=== PATIENT | female | born 1965 | race Two or more races ===

== ENCOUNTER 2021-06-23 19:53 | Inpatient (IN) | payer MEDICARE, OTHER ==
[~2021-06-23] VITALS: Ht 165.1 cm; Wt 80.7 kg
--- NOTE | 2021-06-23 20:20 | NUR ---
Dr. Valverde at bedside for MSE.
--- NOTE | 2021-06-23 21:18 | NUR ---
Pt out of ER for CT.
--- NOTE | 2021-06-23 22:18 | NUR ---
Pt back to ER from CT.
--- NOTE | 2021-06-23 22:35 | NUR ---
Called [facility] to page Gemma Saab NP.
[2021-06-23] MEDS ORDERED: ABEM150T PO (22:46)
[2021-06-23] MEDS ORDERED: BP MEDICATION PO (22:46)
[2021-06-23] MEDS ORDERED: INSU3INS9 SQ (22:46)
--- NOTE | 2021-06-23 22:50 | NUR ---
Dr. Valverde on panel call with Gemma Saab NP. Patient accepted for admission to [facility], diagnosis: lumbar fracture.
[2021-06-23] MEDS ORDERED: ACETAMINOPHEN 325 MG TABLET PO PRN (23:00)
[2021-06-23] MEDS ORDERED: HYDROMORPHONE 1 MG/1 ML DISP.SYRIN IV PRN (23:00)
[2021-06-23] MEDS ORDERED: INSULIN REGULAR, HUMAN 300 UNITS/3 ML VIAL SQ PRN (23:00)
[2021-06-23] MEDS ORDERED: Z GUARD REMEDY PASTE 57 GM TUBE TOP PRN (23:00)
[2021-06-23] MEDS ORDERED: MAGNESIUM HYDROXIDE 30 ML LIQUID UDC PO PRN (23:00)
[2021-06-23] MEDS ORDERED: HYDROCODONE/APAP 10-325 MG TABLET PO PRN (23:00)
[2021-06-23] MEDS ORDERED: DEXTROSE 50% 50 ML DISP.SYRIN IV PRN (23:00)
[2021-06-23 23:11] LABS: CREATININE 1.2 mg/dL (0.6-1.3)
[2021-06-23 23:13] LABS: HEMATOCRIT 28.6 % (31.2-41.9); MEAN CORPUSCULAR HEMOGLOBIN 39.3 uug (24.7-32.8); MEAN CORPUSCULAR VOLUME 112.5 fL (75.5-95.3); PLATELET COUNT (AUTO) 102 K/uL (179-408)
--- NOTE | 2021-06-23 23:30 | NUR ---
Report given to [facility]ge [facility].
[2021-06-24] MEDS: IV NS 1000 ML 1,000 ML IV PRN ×2 (01:45→15:11)
[2021-06-24 02:04] VITALS: BP 133/67
[2021-06-24 04:35] VITALS: BP 131/62
--- NOTE | 2021-06-24 05:40 | NUR ---
Pt admitted to med surg at [facility]105[facility]. Denies pain at this time. No SOB. IV site is intact and running ordered fluids. Pt alert and able to make needs known. Safety and comfort provided. No other issues or concerns at this time, will endorse to day shift.
[2021-06-24 06:20] LABS: MEAN CORPUSCULAR HEMOGLOBIN 39.3 uug (24.7-32.8); MEAN CORPUSCULAR VOLUME 112.2 fL (75.5-95.3); PLATELET COUNT (AUTO) 85 K/uL (179-408)
[2021-06-24 06:40] LABS: CREATININE 0.8 mg/dL (0.6-1.3); PHOSPHOROUS 4.2 mg/dL (2.5-4.9); POTASSIUM 3.6 mmol/L (3.5-5.1)
[2021-06-24] MEDS: BLOOD SUGAR DIAGNOSTIC 1 EACH STRIP VI SCH ×4 (06:44→21:00)
[2021-06-24] MEDS ORDERED: ABEMACICLIB 150 MG PO SCH (09:00)
[2021-06-24 11:56] VITALS: BP 115/60
[2021-06-24 15:14] VITALS: BP 136/75
--- NOTE | 2021-06-24 15:30 | NUR ---
patient is alert, oriented x4, no sob, reps even nonlabored, skin warm and dry to touch, patient is ambulatory, safety precautions in place to prevent the fall, no acute distress noted. patient denied to get anything for pain, stated she is ok.
[2021-06-24] MEDS: ONDANSETRON 4 MG/2 ML VIAL IV PRN (16:35)
--- NOTE | 2021-06-24 16:41 | NUR ---
patient vomited, CHIEF PROJECTIONIST Gemma aware, changed diet to soft diet, will continue to monitor
[2021-06-24 20:00] VITALS: BP 129/66
[2021-06-25 04:00] VITALS: BP 129/52
[2021-06-25] MEDS: BLOOD SUGAR DIAGNOSTIC 1 EACH STRIP VI SCH ×4 (06:33→21:17)
[2021-06-25] MEDS: IV NS 1000 ML 1,000 ML IV PRN ×2 (06:52→20:20)
[2021-06-25 07:19] LABS: HEMATOCRIT 28.5 % (31.2-41.9); MEAN CORPUSCULAR HEMOGLOBIN 38.9 uug (24.7-32.8); MEAN CORPUSCULAR VOLUME 111.9 fL (75.5-95.3); PLATELET COUNT (AUTO) 91 K/uL (179-408)
[2021-06-25 07:23] LABS: CREATININE 0.8 mg/dL (0.6-1.3); POTASSIUM 4.1 mmol/L (3.5-5.1)
[2021-06-25 11:17] VITALS: BP 123/68
[2021-06-25] MEDS: INSULIN REGULAR, HUMAN 300 UNIT/3 ML VIAL SQ PRN (11:46)
--- NOTE | 2021-06-25 14:40 | NUR ---
patient is alert, oriented x4, no sob, resp even nonlabored, skin warm and dry to touch, tolerated full liquids, denies nausea/vomiting, ambulatory, denies any pain.
[2021-06-25 16:04] VITALS: BP 119/54
--- NOTE | 2021-06-25 18:50 | NUR ---
no nausea, no vomiting noted, patient tolerated regular meal
--- NOTE | 2021-06-25 19:00 | NUR ---
RECD PT IN BED,RESTING COMFORTABLY, ALERT ORIENTEDX 4, NO ACUTE DISTRESS NOTED. NEEDS ATTENDED TO,
[2021-06-25 20:00] VITALS: BP 144/69
--- NOTE | 2021-06-25 21:30 | NUR ---
DUE MEDS GIVE, IVF INFUSING WELL TO HEPLOCK ON LEFT ARM,, NO DIABETIC CRISES NOTED. SLEPT ON AND OFF.NO NAUSEA AND VOMITING NOTED SO FAR.
[2021-06-26 04:00] VITALS: BP 127/66
[2021-06-26] MEDS: BLOOD SUGAR DIAGNOSTIC 1 EACH STRIP VI SCH ×3 (07:24→16:26)
[2021-06-26] MEDS ORDERED: HYDR-3980 PO (08:08)
[2021-06-26] MEDS ORDERED: ACET325T53 PO (08:08)
[2021-06-26] MEDS: IV NS 1000 ML 1,000 ML IV PRN (08:33)
[2021-06-26] MEDS: ONDANSETRON 4 MG/2 ML VIAL IV PRN (08:40)
[2021-06-26 11:21] VITALS: BP 149/73
[2021-06-26] MEDS: INSULIN REGULAR, HUMAN 300 UNIT/3 ML VIAL SQ PRN ×2 (12:02→16:28)
[2021-06-26 15:20] VITALS: BP 137/67
--- NOTE | 2021-06-26 18:40 | NUR ---
patient given discharge instructions including medication and aftercare instructions. Reminded patient to f/u with primary health care provider as well as following up with neurosurgery. Patient states understanding of following medication regimen as well as aftercare. IV site was removed, minimal bleeding to site, pressure was placed as well as dressing. patient able to safely transfer onto . taken downstairs for daughter to milk pickup truck driver .
== END 2021-06-26 23:23 | disposition home or self-care (01) | DRG 552 ==
LOC: ER 19:56 → MEDSURG3 23:30
PROVIDERS: ADMIT Nurse Practitioner Acute Care; ATTEND Registered Nurse
DX: S32.019A Unspecified fracture of first lumbar vertebra, initial encounter for closed fracture (principal); W01.0XXA Fall on same level from slipping, tripping and stumbling without subsequent striking against object, initial encounter; Y93.E1 Activity, personal bathing and showering; D63.8 Anemia in other chronic diseases classified elsewhere; E11.9 Type 2 diabetes mellitus without complications; I10 Essential (primary) hypertension; Z79.4 Long term (current) use of insulin; Z20.822 Contact with and (suspected) exposure to COVID-19; Z79.899 Other long term (current) drug therapy; R52 Pain, unspecified; Z85.841 Personal history of malignant neoplasm of brain; Y92.002 Bathroom of unspecified non-institutional (private) residence as the place of occurrence of the external cause
CPT/HCPCS: 36415; 70450; 72125; 72131; 74018; 84100; 85025; 97161; A4663; G0378; J1170; J1815; J2405; J7030